=== PATIENT | male | born 1960 | race Caucasian/White ===

== ENCOUNTER → 2016-08-31 | Outpatient (CLI) | payer OTHER ==
--- NOTE | 2016-08-31 08:21 | XR ---
EXAMINATION TYPE: XR chest 2V DATE OF EXAM: 08/31/2016 7:57 AM COMPARISON: Prior chest x-ray 02 November 2010 HISTORY: Cough for 2 months TECHNIQUE: Frontal and lateral views of the chest are obtained. FINDINGS: There is no focal air space opacity, pleural effusion, or pneumothorax seen. The cardiac silhouette size is within normal limits. There are prominent lung volumes present. Bronchial wall th ickening is noted. The osseous structures are intact. IMPRESSION: Correlate for reactive airways disease, bronchitis. Follow-up as indicated.
== END | disposition home or self-care (01) ==
LOC: RADXRMAIN 07:40
PROVIDERS: ATTEND Internal Medicine
DX: J40 Bronchitis, not specified as acute or chronic (principal)
CPT/HCPCS: 71020

== ENCOUNTER → 2016-10-30 | Outpatient (CLI) | payer OTHER ==
[2016-10-30 17:02] LABS: ALT 41 U/L (21-72); AST 22 U/L (17-59); Alkaline Phosphatase 115 U/L (38-126); Anion Gap 10 mmol/L; Blood Urea Nitrogen 18 mg/dL (9-20); Calcium 9.5 mg/dL (8.4-10.2); Carbon Dioxide 31 mmol/L (22-30); Chloride 101 mmol/L (98-107); Cholesterol 141 mg/dL (<200); Glucose 159 mg/dL (74-99); HDL Cholesterol 34 mg/dL (40-60); Non-African American GFR(MDRD) >60 (>60 ml/min/1.73 sqM); Potassium 4.1 mmol/L (3.5-5.1); Sodium 142 mmol/L (137-145); Total Bilirubin 1.1 mg/dL (0.2-1.3); Total Protein 7.2 g/dL (6.3-8.2); Triglycerides 264 mg/dL (<150)
== END | disposition home or self-care (01) ==
LOC: LABWHC1 16:23
PROVIDERS: ATTEND Internal Medicine Clinical Cardiac Electrophysiology
DX: R06.02 Shortness of breath (principal); R00.1 Bradycardia, unspecified
CPT/HCPCS: 36415; 80053; 80061; 84443

== ENCOUNTER 2016-11-07 14:18 | Emergency (ER) | payer OTHER ==
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
[2016-11-07 16:03] VITALS: BP 139/77; PULSE 56; RESP 20; TEMP 97.9
== END 2016-11-07 16:03 | disposition home or self-care (01) ==
LOC: EC 14:18
DX: S16.1XXA Strain of muscle, fascia and tendon at neck level, initial encounter (principal); F41.9 Anxiety disorder, unspecified; F43.10 Post-traumatic stress disorder, unspecified; Z87.891 Personal history of nicotine dependence; Z79.899 Other long term (current) drug therapy; Z88.1 Allergy status to other antibiotic agents; V43.52XA Car driver injured in collision with other type car in traffic accident, initial encounter; Y92.89 Other specified places as the place of occurrence of the external cause
CPT/HCPCS: 70450; 72125; 99284

== ENCOUNTER 2019-04-14 20:38 | Inpatient (IN) | payer OTHER ==
[2019-04-14] MEDS ORDERED: SODIUM CHLORIDE 0.9% 1,000 ML IV ONE (20:45)
[2019-04-14] MEDS ORDERED: ASPIRIN 81 MG PO STA (21:00)
[2019-04-14] MEDS ORDERED: NITROGLYCERIN SL TABS 0.4 MG TAB SUBLINGUAL STA (21:00)
[2019-04-14] MEDS ORDERED: HEPARIN SODIUM,PORCINE 5,000 UNIT/ML 1 ML VIAL IV STA (21:11)
[2019-04-14] MEDS ORDERED: NITROGLYCERIN OINT 1 INCH/GM PACKET TOPICAL STA (21:13)
[2019-04-14 21:14] LABS: Basophils # (A) 0.1 k/uL (0-0.2); Basophils % (A) 1 %; Eosinophils # (A) 0.5 k/uL (0-0.7); Eosinophils % (A) 5 %; HCT 40.9 % (39.0-53.0); HGB 14.5 gm/dL (13.0-17.5); Lymphocytes # (A) 3.4 k/uL (1.0-4.8); Lymphocytes % (A) 34 %; MCH 30.7 pg (25.0-35.0); MCHC 35.4 g/dL (31.0-37.0); MCV 86.6 fL (80.0-100.0); Mean Platelet Volume 7.3; Monocytes # (A) 0.8 k/uL (0-1.0); Monocytes % (A) 8 %; Neutrophils # (A) 4.9 k/uL (1.3-7.7); Neutrophils % (A) 49 %; Platelet Count 270 k/uL (150-450); RBC 4.72 m/uL (4.30-5.90); RDW 14.6 % (11.5-15.5)
[2019-04-14] MEDS ORDERED: ATORVASTATIN 80 MG TAB PO STA (21:14)
--- NOTE | 2019-04-14 21:24 | XR ---
EXAMINATION TYPE: XR chest 1V portable DATE OF EXAM: 04/14/2019 COMPARISON: 08/31/2016 HISTORY: Chest pain TECHNIQUE: Single frontal view of the chest is obtained. FINDINGS: There is no heart failure nor confluent pneumonic infiltrate. Costophrenic angles are syed r. There are chest leads. IMPRESSION: No active cardiopulmonary disease. No change.
[2019-04-14] MEDS ORDERED: MORPHINE SULFATE 4 MG/ML SYRINGE IVP STA (21:26)
[2019-04-14 21:27] LABS: ALT 24 U/L (21-72); AST 25 U/L (17-59); African American GFR (CKD) >90 (>60 ml/min/1.73 sqM); Albumin 4.2 g/dL (3.5-5.0); Alkaline Phosphatase 139 U/L (38-126); Anion Gap 9 mmol/L; Blood Urea Nitrogen 17 mg/dL (9-20); Calcium 9.2 mg/dL (8.4-10.2); Carbon Dioxide 26 mmol/L (22-30); Chloride 103 mmol/L (98-107); Creatine Kinase 76 U/L (55-170); D-Dimer 0.33 mg/L FEU (<0.60); Glucose 126 mg/dL (74-99); INR 0.9 (<1.2); Partial Thromboplastin Time 24.4 sec (22.0-30.0); Potassium 3.5 mmol/L (3.5-5.1); Prothrombin Time 9.8 sec (9.0-12.0); Sodium 138 mmol/L (137-145); Total Bilirubin 0.8 mg/dL (0.2-1.3); Total Protein 7.3 g/dL (6.3-8.2)
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
[2019-04-14] MEDS ORDERED: LIDOCAINE 1% INJ 10MG/ML (20 ML MDV) ONE (21:33)
[2019-04-14] MEDS ORDERED: ONDANSETRON 4 MG/2 ML VIAL IVP STA (21:37)
[2019-04-14 21:43] LABS: Creatine Kinase MB 0.3 ng/mL (0.0-2.4); Troponin I 0.019 ng/mL (0.000-0.034)
[2019-04-14] MEDS ORDERED: LIDOCAINE 1% INJ 10MG/ML (20 ML MDV) SQ ONE (21:54)
[2019-04-14] MEDS ORDERED: HEPARIN SODIUM 1,000 UN/ML (10ML VL) ONE (21:59)
[2019-04-14] MEDS ORDERED: CLOPIDOGREL 75 MG TAB ONE (22:00)
[2019-04-14] MEDS ORDERED: CLOPIDOGREL 75 MG TAB PO ONE (22:03)
[2019-04-14] MEDS ORDERED: TIROFIBAN 12.5MG-250ML NS 250 ML IV ONE (22:09)
[2019-04-14] MEDS ORDERED: TIROFIBAN BOLUS 12.5MG/250 ML BAG IV ONE (22:09)
[2019-04-14] MEDS ORDERED: NITROGLYCERIN 1000MCG/10ML SYRINGE INTRACORON ONE (22:13)
[2019-04-14] MEDS ORDERED: MIDAZOLAM (PF) 2 MG/2 ML VIAL IV ONE (22:14)
[2019-04-14] MEDS ORDERED: MEPERIDINE 50 MG/ML SYRINGE IVP ONE (22:20)
[2019-04-14] MEDS ORDERED: IOPAMIDOL-370 100ML BTL INJ ONE ×3 (22:20→22:46)
[2019-04-14] MEDS ORDERED: DOPamine DRIP 800 MG in DEXTROSE/WATER 1 250ML.BAG IV ONE (22:39)
[2019-04-14] MEDS ORDERED: RX INFO: IV CONTRAST WAS GIVEN 1 EACH MISC MISCELLANE PRN (22:54)
[2019-04-14] MEDS ORDERED: NITROGLYCERIN SL TABS 0.4 MG TAB SUBLINGUAL PRN (22:54)
[2019-04-14] MEDS ORDERED: ATROPINE SULFATE 0.1 MG/ML 10ML SYRINGE IV PRN (22:54)
[2019-04-14] MEDS ORDERED: MAG HYDROX/AL HYDROX/SIMETH 30 ML CUP PO PRN (22:54)
[2019-04-14] MEDS ORDERED: ONDANSETRON 4 MG/2 ML VIAL ONE (22:56)
[2019-04-14] MEDS: POTASSIUM CHLORIDE ER 20 MEQ TAB.ER PO SCH (23:20)
[2019-04-15] MEDS ORDERED: POTASSIUM CHLORIDE 10 MEQ in WATER FOR INJECTION 1 100ML.BAG IVPB SCH
[2019-04-15 00:14] LABS: Glucose,Whole Blood 172 mg/dL (75-99)
[2019-04-15] MEDS: POTASSIUM CHLORIDE ER 20 MEQ TAB.ER PO SCH (00:40)
[2019-04-15] MEDS ORDERED: ZOLPIDEM 5 MG TAB PO PRN (01:00)
[2019-04-15 04:36] LABS: Basophils # (A) 0.1 k/uL (0-0.2); Basophils % (A) 1 %; Eosinophils # (A) 0.2 k/uL (0-0.7); Eosinophils % (A) 2 %; HCT 37.5 % (39.0-53.0); HGB 12.7 gm/dL (13.0-17.5); Lymphocytes # (A) 1.7 k/uL (1.0-4.8); Lymphocytes % (A) 16 %; MCH 29.7 pg (25.0-35.0); MCHC 33.9 g/dL (31.0-37.0); MCV 87.8 fL (80.0-100.0); Mean Platelet Volume 7.5; Monocytes # (A) 0.5 k/uL (0-1.0); Monocytes % (A) 5 %; Neutrophils # (A) 8.2 k/uL (1.3-7.7); Neutrophils % (A) 76 %; Platelet Count 241 k/uL (150-450); RBC 4.28 m/uL (4.30-5.90); RDW 13.3 % (11.5-15.5); WBC 10.8 k/uL (3.8-10.6)
[2019-04-15 04:44] LABS: African American GFR (CKD) >90 (>60 ml/min/1.73 sqM); Anion Gap 7 mmol/L; Blood Urea Nitrogen 17 mg/dL (9-20); Calcium 8.6 mg/dL (8.4-10.2); Carbon Dioxide 23 mmol/L (22-30); Chloride 107 mmol/L (98-107); Glucose 114 mg/dL (74-99); Sodium 137 mmol/L (137-145)
[2019-04-15] MEDS: SODIUM CHLORIDE 0.9% 1,000 ML IV SCH ×2 (05:17→09:18)
--- NOTE | 2019-04-15 06:05 | CC ---
CARDIAC CATHETERIZATION REPORT PROCEDURE: 1. Left heart catheterization and coronary angiography. 2. PTCA and stenting of mid LAD performed in the setting of an acute ST-elevation DC with reperfusion accomplished in 84 minutes. 3. PTCA and stenting of proximal RCA, a codominant vessel. PERFORMED BY: Dr. Teresita Zheng. Moderate conscious sedation time was 54 minutes. CLINICAL INFORMATION: Mr. Cayden Rodriguez is a 58-year-old gentleman with a history of hypertension, past history of smoking, posttraumatic stress syndrome and hyperlipidemia, came into the hospital with chest pain and had ST elevation in the anterior leads. He was evaluated promptly and brought in for the procedure expeditiously. PROCEDURE NOTE: Under local anesthesia and strict aseptic precautions, a 6-[place] introducer was placed in the right femoral artery. I used a standard left Nikky guide catheter to cannulate the left coronary artery and proceeded to perform PCI of LAD. Subsequently, I performed injection of the RCA and noted that there was a 99% proximal RCA lesion and this was addressed also with a PTCA with a drug-eluting stent. I also obtained LV pressures but did not obtain LV gram. The sheath was then taken out and a Perclose device used to secure hemostasis and he was sent to the room in a stable condition. The patient received 600 mg of Plavix. He received a the total of 11,000 units of heparin. His ACT was 243. CARDIAC CATHETERIZATION FINDINGS: Left ventricular end-diastolic pressure was 15 mmHg without any gradient across the aortic valve. CORONARY ANGIOGRAPHY FINDINGS: RIGHT CORONARY ARTERY: This is a codominant vessel which is subtotally occluded in the proximal portion with somewhat sluggish flow with limited antegrade flow. There is a 99% proximal RCA stenosis of what seems to be a codominant vessel without much flow distally. LEFT MAIN CORONARY ARTERY: Short patent disease-free vessel that bifurcates into LAD and circumflex. LEFT ANTERIOR DESCENDING CORONARY ARTERY: This is a good caliber vessel that extends along the anterior wall, gives off a diagonal branch proximally. Then there is a hazy 80% to 90% stenosis in some views, very eccentric in nature. The caliber then improves. It gives off a second diagonal branch and then several septal branches runs over to the apex, curves over the apex to supply the inferoapical portion of left ventricle. Mid LAD therefore has eccentric 80% to 90% lesion with haziness and thrombus. LEFT POSTERIOR CIRCUMFLEX CORONARY ARTERY: This is a technically codominant vessel gives off a first obtuse marginal and then a second obtuse marginal. Second obtuse marginal has about a 50% lesion. Then, it runs in the AV groove and gives off ostium to a posterolateral branch which has no significant disease. The first OM is small in caliber and distribution with minor irregularities. Second OM has a 50% lesion and the PLV branch has no significant disease. FINAL IMPRESSION: The patient's left ventricular end-diastolic pressure was about 15 mmHg without any gradient across the aortic valve. RCA was subtotally occluded with a 99% proximal lesion with sluggish flow. This is a codominant vessel. The LAD had a mid lesion of about 90% with thrombus eccentric in nature. There is a 50% circumflex marginal stenosis noted. Left ventriculogram was not performed. RECOMMENDATION: I advised a PCI of LAD, which was performed expeditiously and then I performed PCI of RCA as well. PCI PROCEDURE DETAILS: Standard left Nikky guide catheter was used to cannulate the left coronary artery. A run-through wire was used to cross the lesion. A 3.0 caliber 12 mm Trek balloon was used to pre-dilate the lesion. An 18 mm long 3.5 caliber Xience stent was deployed at 12 atmospheres with excellent angiographic result. The patient became somewhat bradycardic and I used dopamine for a very brief duration. Subsequently, I performed injection of the RCA and noted that there was a subtotal occlusion with sluggish flow. I switched over to a right Nikky type guide catheter and a run-through wire and crossed the lesion. A 2.5 caliber 12 mm balloon was used to pre-dilate the lesion and then a 2.75 caliber 18 mm long Xience stent was deployed at 12 atmospheres. Patient had no significant new EKG changes or chest discomfort. Excellent angiographic result was achieved without complication. The sheath was then taken out and Perclose device used to secure hemostasis. Excellent angiographic result was achieved of both LAD and RCA. Two drug-eluting stents were deployed and the patient tolerated the procedure well without complications. Findings and results were discussed with the patient and . MMODL / IJN: [id number] /
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
[2019-04-15] MEDS ORDERED: METOPROLOL TARTRATE 12.5 MG TAB PO SCH (09:00)
[2019-04-15] MEDS: ASPIRIN 81 MG PO SCH (09:18)
[2019-04-15] MEDS: LOSARTAN 50 MG TAB PO SCH (09:18)
[2019-04-15] MEDS: CLOPIDOGREL 75 MG TAB PO SCH (09:18)
[2019-04-15] MEDS ORDERED: ACETAMINOPHEN TAB 325 MG TAB PO PRN (10:10)
[2019-04-15 10:22] VITALS: BMI 27.9
--- NOTE | 2019-04-15 11:07 | ECHOF ---
Referral Reason:Ant STEMI S/P LAD and RCA PCI MEASUREMENTS -------- HEIGHT: 182.9 cm WEIGHT: 93.0 kg BP: 122/78 RVIDd: 3.3 cm (< 3.3) IVSd: 1.3 cm (0.6 - 1.1) LVIDd: 4.2 cm (3.9 - 5.3) LVPWd: 1.3 cm (0.6 - 1.1) IVSs: 1.7 cm LVIDs: 2.9 cm LVPWs: 1.8 cm LA Diam: 3.6 cm (2.7 - 3.8) LAESV Index (A-L): 33.69 ml/m Ao Diam: 3.3 cm (2.0 - 3.7) AV Cusp: 2.2 cm (1.5 - 2.6) MV EXCURSION: 16.659 mm (> 18.000) MV EF SLOPE: 222 mm/s (70 - 150) EPSS: 0.2 cm MV E Fer: 0.96 m/s MV DecT: 265 ms MV A Fer: 0.69 m/s MV E/A Ratio: 1.38 RAP: 5.00 mmHg RVSP: 25.82 mmHg FINDINGS -------- Sinus rhythm. This was a technically good study. The left ventricular size is normal. There is mild concentric left ventricular hypertrophy. Overa ll left ventricular systolic function is normal with, an EF between 60 - 65 %. The right ventricle is normal in size. LA is midly dilated 29-33ml/m2. The right atrium is normal in size. Interatrial and interventricular septum intact. The aortic valve is trileaflet and appears structurally normal. There is trace to mild mitral regurgitation. Mild tricuspid regurgitation present. Right ventricular systolic pressure is normal at < 35 mmHg. Trace/mild (physiologic) pulmonic regurgitation. The aortic root size is normal. Normal inferior vena cava with normal inspiratory collapse consistent with estimated right atrial pre ssure of 5 mmHg. There is no pericardial effusion. CONCLUSIONS -------- 1. Sinus rhythm. 2. This was a technically good study. 3. The left ventricular size is normal. 4. There is mild concentric left ventricular hypertrophy. 5. Overall left ventricular systolic function is normal with, an EF between 60 - 65 %. 6. The right ventricle is normal in size. 7. LA is midly dilated 29-33ml/m2. 8. The right atrium is normal in size. 9. Interatrial and interventricular septum intact. 10. The aortic valve is trileaflet and appears structurally normal. 11. There is trace to mild mitral regurgitation. 12. Mild tricuspid regurgitation present. 13. Right ventricular systolic pressure is normal at < 35 mmHg. 14. Trace/mild (physiologic) pulmonic regurgitation. 15. The aortic root size is normal. 16. Normal inferior vena cava with normal inspiratory collapse consistent with estimated right atrial pressure of 5 mmHg. 17. There is no pericardial effusion. OIL BURNER INSTALLER: Vibha Moore RDCS
[2019-04-15] MEDS ORDERED: METOPROLOL TARTRATE 12.5 MG TAB PO STA (11:16)
--- NOTE | 2019-04-15 11:42 | PN ---
PROGRESS NOTE This patient was admitted with acute myocardial infarction. EKG is suggestive of probably acute inferior wall myocardial infarction. Patient had a subtotal occlusion of the RCA as well as significant disease in the LAD and patient underwent stent to the RCA and LAD. He is doing fairly well. Denies any chest pain. Denies any shortness of breath. Blood pressure is 147/100 mmHg. First and second heart sounds are normal. Lungs are clinically clear to auscultation and percussion. We will review the patient's echocardiogram. Patient's Lopressor is increased to 25 mg b.i.d. because of the multiple PVCs. EKG shows now T-wave inversions in the inferior leads. MMODL / IJN: [id number] /
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
[2019-04-15] MEDS: METOPROLOL TARTRATE 25 MG TAB PO SCH (21:50)
[2019-04-15] MEDS: ATORVASTATIN 80 MG TAB PO SCH (21:50)
[2019-04-15] MEDS: busPIRone HCl 5 MG TAB PO SCH (22:09)
[2019-04-15] MEDS: traZODone HCL 50 MG TAB PO SCH (22:09)
[2019-04-16 05:45] LABS: African American GFR (CKD) >90 (>60 ml/min/1.73 sqM); Anion Gap 6 mmol/L; Blood Urea Nitrogen 14 mg/dL (9-20); Calcium 8.6 mg/dL (8.4-10.2); Carbon Dioxide 26 mmol/L (22-30); Chloride 107 mmol/L (98-107); Glucose 96 mg/dL (74-99); Potassium 3.8 mmol/L (3.5-5.1); Sodium 139 mmol/L (137-145)
[2019-04-16] MEDS ORDERED: POTASSIUM CHLORIDE ER 20 MEQ TAB.ER PO SCH (07:00)
[2019-04-16] MEDS: SERTRALINE 100 MG TAB PO SCH (09:16)
[2019-04-16] MEDS: FAMOTIDINE 20 MG TAB PO SCH (09:16)
[2019-04-16] MEDS: LOSARTAN 50 MG TAB PO SCH (09:16)
[2019-04-16] MEDS: busPIRone HCl 5 MG TAB PO SCH ×2 (09:16→21:19)
[2019-04-16] MEDS: ASPIRIN 81 MG PO SCH (09:16)
[2019-04-16] MEDS: METOPROLOL TARTRATE 25 MG TAB PO SCH (09:16)
[2019-04-16] MEDS: CLOPIDOGREL 75 MG TAB PO SCH (09:17)
--- NOTE | 2019-04-16 09:57 | P.PN ---
Subjective Progress Note Date: 04/16/19 This patient is status post in Inferior wall myocardial infarction. Patient had a stent to the RCA and LAD patient is doing fairly well. Denies any chest pain or shortness of breath isn't has a evidence of a small hematoma in the right groin there is no evidence of any bruit. Patient continues to have intermittent PVCs. Objective - Vital Signs Vital signs: Vital Signs Temp 98 F 04/16/19 04:00 Pulse 59 L 04/16/19 04:00 Resp 19 04/16/19 04:00 BP 119/74 04/16/19 04:00 Pulse Ox 94 L 04/16/19 04:00 Intake & Output 04/15/19 04/16/19 04/16/19 18:59 06:59 18:59 Intake Total 1220 240 Output Total 400 1 Balance 820 239 Weight 93.4 kg 96 kg Intake: IV 500 Sodium Chloride 0.9% 1, 500 000 ml @ 100 mls/hr IV . Q10H [facility] Rx#:[id number] Oral 720 240 Output: Urine 400 1 Other: Voiding Method Urinal # Voids 2 3 # Bowel Movements 1 - Exam Vital signs reviewed Patient's vital signs are reviewed. The patient is alert awake and in no acute distress. HEENT negative. Neck-supple no increase in JVP noted no carotid bruits noted. Chest-symmetrical. Heart-first and second heart sounds are normal. No S3 or S4 is noted. No significant murmurs are noted. Lungs bilateral good at entry is noted. No rales or rhonchi are noted Abdomen-soft. Liver and spleen are not enlarged. The bowel sounds are normal. No tenderness noted Extremities-peripheral pulses since are 2+. No significant leg edema noted. Neuro-no significant gross abnormality noted. Right groin shows small hematoma no bruit noted - Labs CBC & Chem 7: 04/15/19 04:04 04/16/19 05:07 Assessment and Plan Assessment: This patient is status post inferior wall myocardial infarction. Patient has a small hematoma in the right groin. I we will increase the dose of her beta ash to 50 mg twice a day. Decrease the losartan to 25 mg daily Ultrasound of the right groin would be done.
--- NOTE | 2019-04-16 10:41 | US ---
EXAMINATION TYPE: US lower ext pseudo artery RT DATE OF EXAM: 04/16/2019 COMPARISON: NONE CLINICAL HISTORY: Right groin hematoma. Right groin cath. EXAM PERFORMED: Grayscale and color Doppler duplex imaging performed of the groin, post cardiac honey ter to assess for pseudoaneurysm. SIDE PERFORMED: Right Color and Waveform Doppler performed to assess for the presence of pseudoaneurysm; Is there ultrasound evidence of a pseudoaneurysm: No Is there evidence of AV shunting: No Is there a fluid collection present: No IMPRESSION: No diagnostic evidence of pseudoaneurysm.
[2019-04-16 13:13] LABS: HCT 39.7 % (39.0-53.0); HGB 13.2 gm/dL (13.0-17.5); MCHC 33.2 g/dL (31.0-37.0); MCV 90.1 fL (80.0-100.0); Mean Platelet Volume 8.2; Platelet Count 227 k/uL (150-450); RBC 4.41 m/uL (4.30-5.90); WBC 9.1 k/uL (3.8-10.6)
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
[2019-04-16] MEDS: METOPROLOL TARTRATE 50 MG TAB PO SCH (21:19)
[2019-04-16] MEDS: traZODone HCL 50 MG TAB PO SCH (21:19)
[2019-04-16] MEDS: ATORVASTATIN 80 MG TAB PO SCH (21:19)
[2019-04-17] MEDS: CLOPIDOGREL 75 MG TAB PO SCH (07:59)
[2019-04-17] MEDS: FAMOTIDINE 20 MG TAB PO SCH (07:59)
[2019-04-17] MEDS: ASPIRIN 81 MG PO SCH (07:59)
[2019-04-17] MEDS: busPIRone HCl 5 MG TAB PO SCH (07:59)
[2019-04-17] MEDS: SERTRALINE 100 MG TAB PO SCH (08:01)
[2019-04-17] MEDS ORDERED: LOSARTAN 25 MG TAB PO SCH (09:00)
[2019-04-17 10:25] VITALS: BP 114/70; PULSE 56; RESP 10; TEMP 98.2
[2019-04-17] MEDS: METOPROLOL TARTRATE 50 MG TAB PO SCH (10:33)
--- NOTE | 2019-04-17 11:21 | PN ---
PROGRESS NOTE This patient is admitted with acute myocardial infarction with status post stent to the right coronary artery as well as the LAD. The patient is doing fairly well. He continues to have intermittent PVCs. He is being ambulate in the hallway. The ultrasound of the groin did not show any evidence of pseudoaneurysm. The patient can be discharged home on the current medications and he will be followed by Dr. Teresita Zheng as an outpatient. MMODL / IJN: [id number] /
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
== END 2019-04-17 13:33 | disposition home or self-care (01) | DRG 249 ==
LOC: EC 20:38 → 2SICU 21:50
PROVIDERS: ADMIT Internal Medicine; ATTEND Internal Medicine
PROC: 02703DZ Dilation of Coronary Artery, One Artery with Intraluminal Device, Percutaneous Approach (ICD-10-PCS; principal; 2019-04-14 21:40)
PROC: 4A023N7 Measurement of Cardiac Sampling and Pressure, Left Heart, Percutaneous Approach (ICD-10-PCS; 2019-04-14 21:40)
PROC: B2111ZZ Fluoroscopy of Multiple Coronary Arteries using Low Osmolar Contrast (ICD-10-PCS; 2019-04-14 21:40)
DX: I21.3 ST elevation (STEMI) myocardial infarction of unspecified site (principal); I08.1 Rheumatic disorders of both mitral and tricuspid valves; I11.9 Hypertensive heart disease without heart failure; E78.5 Hyperlipidemia, unspecified; F43.10 Post-traumatic stress disorder, unspecified; I25.10 Atherosclerotic heart disease of native coronary artery without angina pectoris; I49.3 Ventricular premature depolarization; R00.1 Bradycardia, unspecified; F41.9 Anxiety disorder, unspecified; S30.1XXA Contusion of abdominal wall, initial encounter; Z79.899 Other long term (current) drug therapy; Z87.820 Personal history of traumatic brain injury; Z87.891 Personal history of nicotine dependence; Z88.1 Allergy status to other antibiotic agents; Z80.8 Family history of malignant neoplasm of other organs or systems; Z82.49 Family history of ischemic heart disease and other diseases of the circulatory system; Z81.1 Family history of alcohol abuse and dependence
CPT/HCPCS: 36415; 71045; 80048; 80053; 82550; 82553; 83690; 83735; 84484; 85025; 85027; 85379; 85610; 85730; 93005; 93306; 93458; 93975; 96374; 96375; 99291; C1874

== ENCOUNTER → 2019-06-09 | Outpatient (CLI) | payer OTHER ==
[2019-06-09 18:44] LABS: Chol/HDL Ratio 3.25; LDL Cholesterol,Calculated 55.2 mg/dL (0.0-131.0); VLDL Calculation 16.8 mg/dL (5.00-40.00)
== END | disposition home or self-care (01) ==
LOC: LABWHC1 15:08
PROVIDERS: ATTEND Internal Medicine Interventional Cardiology
DX: E78.5 Hyperlipidemia, unspecified (principal); I25.10 Atherosclerotic heart disease of native coronary artery without angina pectoris
CPT/HCPCS: 36415; 80061; 82550; 84450; 84460

== ENCOUNTER 2022-02-12 08:41 | Emergency (ER) | payer MEDICARE, OTHER ==
[2022-02-12 08:52] VITALS: BP 134/73; PULSE 57; RESP 16; TEMP 97.8
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
--- NOTE | 2022-02-12 09:52 | XR ---
EXAMINATION TYPE: XR ankle complete RT, XR foot complete RT DATE OF EXAM: 02/12/2022 9:36 AM INDICATION: Patient age:Male; 61 years old; Reason for study: pain swelling; COMPARISON: None TECHNIQUE: Frontal lateral and oblique views of the right foot and ankle. FINDINGS: There is no evidence of acute osseous pathology. The joint spaces are well-preserved without evidenc e of subluxation or dislocation. Kager's fat pad is intact. Mild soft tissue swelling around the late ral ankle. No radiopaque foreign bodies are identified. Calcaneal plantar spurring is present. IMPRESSION: 1. No evidence of acute fracture. 2. Subcutaneous swelling around the lateral ankle likely secondary to underlying soft tissue injury.
== END 2022-02-12 10:35 | disposition home or self-care (01) ==
LOC: EC 08:41
DX: M25.571 Pain in right ankle and joints of right foot (principal); Z82.49 Family history of ischemic heart disease and other diseases of the circulatory system; Z88.1 Allergy status to other antibiotic agents
CPT/HCPCS: 99283

== ENCOUNTER 2024-03-04 06:01 | Emergency (ER) | payer MEDICARE, OTHER ==
[2024-03-04 06:05] VITALS: TEMP 98.3
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
[2024-03-04 07:31] VITALS: BP 103/73; PULSE 84; RESP 16
== END 2024-03-04 07:31 | disposition home or self-care (01) ==
LOC: EC 06:01
DX: U07.1 COVID-19 (principal); Z88.1 Allergy status to other antibiotic agents
CPT/HCPCS: 87636; 99283

== ENCOUNTER 2024-10-02 12:49 | Emergency (ER) | payer MEDICARE, OTHER ==
[2024-10-02 12:54] VITALS: RESP 18
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
[2024-10-02] MEDS: SODIUM CHLORIDE 0.9% 1,000 ML IV STA (13:27)
[2024-10-02] MEDS: ONDANSETRON 4 MG/2 ML VIAL IVP STA (13:27)
[2024-10-02 13:30] LABS: Basophils # (A) 0.1 k/uL (0-0.2); Basophils % (A) 1 %; Eosinophils # (A) 0.3 k/uL (0-0.7); Eosinophils % (A) 4 %; HCT 44.8 % (39.0-53.0); HGB 14.9 gm/dL (13.0-17.5); Lymphocytes # (A) 2.4 k/uL (1.0-4.8); Lymphocytes % (A) 30 %; MCH 29.2 pg (25.0-35.0); MCHC 33.4 g/dL (31.0-37.0); MCV 87.5 fL (80.0-100.0); Mean Platelet Volume 7.3; Monocytes # (A) 0.6 k/uL (0-1.0); Monocytes % (A) 8 %; Neutrophils # (A) 4.4 k/uL (1.3-7.7); Neutrophils % (A) 54 %; Platelet Count 256 k/uL (150-450); RBC 5.11 m/uL (4.30-5.90); RDW 12.2 % (11.5-15.5); WBC 8.2 k/uL (3.8-10.6)
[2024-10-02 13:44] LABS: Partial Thromboplastin Time 22.3 sec (22.0-30.0); Prothrombin Time 11.1 sec (10.0-12.5)
[2024-10-02 13:45] LABS: ALT 29 U/L (4-49); AST 26 U/L (17-59); African American GFR (CKD) >90 (>60 ml/min/1.73 sqM); Albumin 4.7 g/dL (3.5-5.0); Alkaline Phosphatase 140 U/L (38-126); Anion Gap 10 mmol/L; Blood Urea Nitrogen 11 mg/dL (9-20); Calcium 9.1 mg/dL (8.4-10.2); Carbon Dioxide 29 mmol/L (22-30); Chloride 99 mmol/L (98-107); Glucose 102 mg/dL (74-99); Non-African American GFR(CKD) >90 (>60 ml/min/1.73 sqM); Potassium 3.7 mmol/L (3.5-5.1); Sodium 138 mmol/L (137-145); Total Bilirubin 1.7 mg/dL (0.2-1.3); Total Protein 7.6 g/dL (6.3-8.2)
[2024-10-02 14:10] LABS: Influenza A Not Detected (Not Detectd); Influenza B Not Detected (Not Detectd); RSV Not Detected (Not Detectd)
--- NOTE | 2024-10-02 14:39 | CT ---
EXAMINATION TYPE: CT brain wo con DATE OF EXAM: 10/02/2024 COMPARISON: 11/07/2016 CLINICAL INDICATION: Male, 64 years old with history of vertigo/HTN; PHH, dizziness CT DLP: 1090.4 mGycm Automated exposure control for dose reduction was used. Findings: The ventricles, basal cisterns and sulci over the convexities are within normal limits for the patien t's age. There is no mass effect or shift of midline structures. Again identified is a right craniotomy defect and a stable focal area of encephalomalacia in the righ t temporal lobe. There is no acute intra or extra-axial hemorrhage. The posterior fossa including the brainstem, fourth ventricle and cerebellar pontine angles appear no rmal. Intraorbital contents appear normal and symmetric. Visualized paranasal sinuses and mastoid air cells are well aerated. The calvarium is intact. IMPRESSION: 1. No acute bleed or mass effect. 2. Right-sided craniotomy defect in stable encephalomalacia right temporal lobe. [facility], Workstation: [email or web address] 10/02/2024 2:37 PM
--- NOTE | 2024-10-02 14:44 | CT ---
EXAMINATION TYPE: CT angio head neck DATE OF EXAM: 10/02/2024 COMPARISON: None CLINICAL INDICATION: Male, 64 years old with history of vertigo/HTN; PHH, dizziness TECHNIQUE: CTA scan of the head and neck is performed with IV Contrast, patient injected with 65 mL of Isovue 370, axial images are obtained, coronal and sagittal reformatted images are reviewed. 3D re constructed images are created on an independent workstation and reviewed. 3-D postprocessing was per formed. CT DLP: 609.[address] CTDI: mGy Automated exposure control for dose reduction was used. NASCET criteria was used in interpretation of this exam? FINDINGS: The brachiocephalic origins are widely patent and no significant stenosis. There is no significant stenosis of the common or internal carotid arteries within the neck. There is no stenosis of the vertebral arteries. Intracranially, there is no stenosis, segmental occlusion, sizable aneurysm sac or vascular malformat ion. IMPRESSION:. No significant abnormality seen. NASCET criteria was used in interpretation of this exam? [facility], Workstation: [email or web address] 10/02/2024 2:41 PM
[2024-10-02 15:33] VITALS: BP 154/97; PULSE 60; TEMP 98.4
== END 2024-10-02 15:32 | disposition home or self-care (01) ==
LOC: EC 12:49
DX: R42 Dizziness and giddiness (principal); I10 Essential (primary) hypertension; Z88.1 Allergy status to other antibiotic agents
CPT/HCPCS: 36415; 93005; 80053; 83605; 83735; 84484; 85025; 85610; 85730; 87636; 70496; 70450; 70498; 99284; 96374; 96361; J2405; Q9967

== ENCOUNTER 2024-10-06 13:15 | Emergency (ER) | payer MEDICARE, OTHER ==
[2024-10-06 13:31] VITALS: TEMP 97.3
[2024-10-06 13:58] LABS: Basophils # (A) 0.1 k/uL (0-0.2); Basophils % (A) 1 %; Eosinophils # (A) 0.4 k/uL (0-0.7); Eosinophils % (A) 5 %; HCT 45.7 % (39.0-53.0); Lymphocytes # (A) 2.2 k/uL (1.0-4.8); Lymphocytes % (A) 26 %; MCH 29.1 pg (25.0-35.0); MCHC 32.7 g/dL (31.0-37.0); Mean Platelet Volume 7.4; Monocytes # (A) 0.7 k/uL (0-1.0); Monocytes % (A) 9 %; Neutrophils # (A) 4.9 k/uL (1.3-7.7); Neutrophils % (A) 58 %; Platelet Count 263 k/uL (150-450); RBC 5.14 m/uL (4.30-5.90); RDW 12.3 % (11.5-15.5); WBC 8.5 k/uL (3.8-10.6)
[2024-10-06 14:06] LABS: Partial Thromboplastin Time 22.7 sec (22.0-30.0); Prothrombin Time 10.8 sec (10.0-12.5)
[2024-10-06 14:20] LABS: ALT 22 U/L (4-49); AST 25 U/L (17-59); African American GFR (CKD) >90 (>60 ml/min/1.73 sqM); Albumin 4.6 g/dL (3.5-5.0); Alkaline Phosphatase 133 U/L (38-126); Anion Gap 7 mmol/L; Blood Urea Nitrogen 14 mg/dL (9-20); Calcium 9.2 mg/dL (8.4-10.2); Carbon Dioxide 31 mmol/L (22-30); Chloride 98 mmol/L (98-107); Glucose 99 mg/dL (74-99); Non-African American GFR(CKD) >90 (>60 ml/min/1.73 sqM); Potassium 4.1 mmol/L (3.5-5.1); Sodium 136 mmol/L (137-145); Total Bilirubin 1.4 mg/dL (0.2-1.3); Total Protein 7.4 g/dL (6.3-8.2)
--- NOTE | 2024-10-06 14:34 | XR ---
EXAMINATION TYPE: XR chest 2V DATE OF EXAM: 10/06/2024 2:29 PM COMPARISON: Chest x-ray 2018 CLINICAL INDICATION: Male, 64 years old with history of sob, TECHNIQUE: Frontal and lateral views of the chest are obtained. FINDINGS: There is no focal air space opacity, pleural effusion, or pneumothorax seen. The cardiac silhouette size is within normal limits. The osseous structures are intact. IMPRESSION: No acute cardiopulmonary process. [facility], , 10/06/2024 2:31 PM
[2024-10-06 15:00] VITALS: RESP 18
--- NOTE | 2024-10-06 15:54 | CT ---
EXAMINATION TYPE: CT brain wo con CT DLP: 1149.1 mGycm, Automated exposure control for dose reduction was used. DATE OF EXAM: 10/06/2024 3:43 PM COMPARISON: CT brain 10/02/2024, CT brain C-spine 11/07/2016 CLINICAL INDICATION:Male, 64 years old with history of Headaches, HTN, visual changes, headache, htn TECHNIQUE: Brain: Multiple axial CT images of the brain were obtained without IV contrast. . Coronal and sagitta l reformats reviewed. FINDINGS: Brain: Extra-axial spaces: No abnormal extra-axial fluid collections. Ventricular system: Within normal limits Cerebral parenchyma: No acute intraparenchymal hemorrhage or mass effect. The adorno-white junction is well differentiated. Stable focal area of encephalomalacia within the right temporal lobe. Cerebellum: Unremarkable. Mass effect: No evidence of midline shift. Intracranial vasculature: unremarkable Soft tissues: Normal. Calvarium/osseous structures: No depressed skull fracture. 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 Paranasal sinuses and mastoid air cells: Clear Visualized orbits: Orbital contents are intact. IMPRESSION: 1. No acute intracranial process. 2. Stable right-sided craniotomy defect with encephalomalacia within the right temporal lobe. [facility], , 10/06/2024 3:52 PM
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
[2024-10-06 17:29] LABS: Appearance,Urine Clear (Clear); Bilirubin,Urine Negative (Negative); Blood,Urine Negative (Negative); Color,Urine Colorless; Glucose,Urine (UA) Negative (Negative); Ketones,Urine Negative (Negative); Leukocyte Esterase,Urine Negative (Negative); Nitrite,Urine Negative (Negative); PH, Urine 5.5 (5.0-8.0); Protein,Urine Negative (Negative); Specific Gravity,Urine 1.009 (1.001-1.035); Urobilinogen,Urine <2.0 mg/dL (<2.0)
[2024-10-06 18:13] VITALS: BP 164/84; PULSE 58
== END 2024-10-06 18:13 | disposition home or self-care (01) ==
LOC: EC 13:15
DX: I11.9 Hypertensive heart disease without heart failure (principal); I25.10 Atherosclerotic heart disease of native coronary artery without angina pectoris; Z88.1 Allergy status to other antibiotic agents
CPT/HCPCS: 36415; 70450; 71046; 80053; 81003; 84484; 85025; 85610; 85730; 93005; 99284